=== PATIENT | male | born 1980 | race Caucasian/White ===

== ENCOUNTER 2021-07-08 00:48 | Emergency (ER) | payer SELFPAY ==
[~2021-07-08] VITALS: Ht 175.3 cm; Wt 84.0 kg
[2021-07-08 06:16] VITALS: BP 95/50
== END 2021-07-08 06:31 | disposition home or self-care (01) ==
LOC: ER 00:48
DX: F10.129 Alcohol abuse with intoxication, unspecified (principal); Y90.8 Blood alcohol level of 240 mg/100 ml or more; I44.0 Atrioventricular block, first degree; R73.9 Hyperglycemia, unspecified
CPT/HCPCS: 36415; 80320; 82962; 93005; 99284; G0480